=== PATIENT | male | born 1990 | race Caucasian/White ===

== ENCOUNTER 2024-12-21 13:45 | Emergency (ER) | payer SELFPAY ==
[2024-12-21 13:58] VITALS: BP 131/83; PULSE 89; RESP 18; TEMP 36.7; O2SAT 95; BMI 51.5
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
[2024-12-21 14:46] VITALS: BP 152/92; PULSE 99; O2SAT 94
== END 2024-12-21 14:50 | disposition home or self-care (01) ==
PROVIDERS: Emergency Provider Physician Assistant
DX: S63.502A Unspecified sprain of left wrist, initial encounter (principal); V89.2XXA Person injured in unspecified motor-vehicle accident, traffic, initial encounter; M79.642 Pain in left hand
CPT/HCPCS: 73110; 73130; 99283

== ENCOUNTER 2024-12-26 10:16 | Emergency (ER) | payer SELFPAY ==
[2024-12-26 10:43] VITALS: BP 156/86; PULSE 105; TEMP 36.9; O2SAT 95; BMI 51.5
[2024-12-26 12:32] LABS: Covid PCR NEGATIVE (Negative); Influenza A POSITIVE (Negative); Influenza B NEGATIVE (Negative); Respiratory Syncytial Virus Ce NEGATIVE (Negative)
--- NOTE | 2024-12-26 13:34 | W.ED.URI ---
HPI - URI/Sore Throat General: Chief Complaint: Upper Respiratory Infection Stated Complaint: coughing,migraine Time Seen by Provider: 12/26/24 13:21 Source: patient Mode of arrival: ambulatory Limitations: no limitations History of Present Illness: 34-year-old male states for last 3 days been having cough congestion along with sore throat and migraine. He states he has had chills body aches subjective fevers. Denies any vomiting or diarrhea denies any worse improving factors. Associated symptoms: Reports chills and headache(s); Deny abdominal pain, chest pain, diarrhea, fever(s), nausea or vomiting Related Data Allergies Allergy/AdvReac Type Severity Reaction Status Date / Time No Known Allergies Allergy Verified 12/26/24 10:46 Review of Systems Const: Reports: chills and body aches; Denies: fever(s) or change in appetite ENMT: Denies: throat pain or dental pain Card: Denies: chest pain Resp: Reports: non-productive cough GI: Denies: abdominal pain, nausea, vomiting or diarrhea Musc: Denies: neck pain or back pain Skin/Breast: Denies: rash Neuro: Reports: headache(s) Physical Exam Const: COMMON NORMALS: patient oriented x3 and healthy appearing HENMT: COMMON NORMALS: normocephalic and atraumatic HEAD & SCALP: normocephalic and atraumatic THROAT: posterior oropharynx normal Neck/C-Spine: COMMON NORMALS: full ROM and supple Chest: COMMONS NORMALS: normal inspection of the chest Resp: COMMON NORMALS: normal respiratory effort, No retractions, No use of accessory muscles and clear to auscultation bilaterally AUSCULTATION: clear to auscultation bilaterally Cardio: COMMON NORMALS: regular rate, regular rhythm and No murmurs present (Cardio) RATE: regular rate RHYTHM: regular rhythm Extremity: COMMON NORMALS: normal to inspection and full ROM Neuro: COMMON NORMALS: patient oriented x3, moves all extremities and no focal motor deficits Psych: COMMON NORMALS: mental status grossly normal, Normal thought process present and cooperative THOUGHT PROCESS: Normal thought process present Skin: COMMON NORMALS: no rashes or lesions noted and no wounds GENERAL SKIN EXAM: no rashes or lesions noted Course Vital Signs: Vital signs: Vital Signs Temperature 98.5 F 12/26/24 10:43 Pulse Rate 105 H 12/26/24 10:43 Blood Pressure 156/86 12/26/24 10:43 Pulse Oximetry 95 12/26/24 10:43 Oxygen Delivery Me thod Room Air 12/26/24 10:43 MDM - URI/Sore Throat Medical Decision Making Patient presents here with influenza he is well-appearing here he stable for discharge follow-up PCP return if worsening. Medical Records I reviewed the patient's medical records. Lab Data I reviewed the patient's lab results. Laboratory Results Coronavirus (PCR) Negative (Negative) 12/26/24 10:45 Influenza A (PCR) Positive (Negative) 12/26/24 10:45 Influenza Type B (PCR) Negative (Negative) 12/26/24 10:45 RSV (PCR) Negative (Negative) 12/26/24 10:45 No radiology studies performed this visit Discharge Plan Discharge Patient Disposition: Home Clinical Impression: Influenza Condition: Stable Discharge Orders: Discharge ED (Routine); Ordered 12/26/24 Ordered By: Eben Negron Discharge Diet: Advance as tolerated Discharge Activity: Resume usual activity Patient Instructions: Influenza (ED) Stand Alone Forms: Work/School Release Print Language: Kazakh Coding Level of Care Code ED Software Sales Executive for Tiera Mendoza
[2024-12-26 13:59] VITALS: BP 139/85; PULSE 97; O2SAT 95
== END 2024-12-26 13:45 | disposition home or self-care (01) ==
PROVIDERS: Emergency Provider Emergency Medicine
DX: J10.1 Influenza due to other identified influenza virus with other respiratory manifestations (principal); Z11.52 Encounter for screening for COVID-19
CPT/HCPCS: 87637; 99283

== ENCOUNTER 2025-01-09 09:11 | Emergency (ER) | payer SELFPAY ==
--- NOTE | 2025-01-09 09:18 | XR_ITS ---
WS: [id number] Exam: XR chest 1V portable [id number] Date/Time of Exam: 01/09/2025 9:19 AM Reason For Exam: dyspnea/cough No priors. Lungs are clear and fully expanded. Normal cardiomediastinal silhouette and regional bony elements. XR/XR chest 1V portable [id number] IMPRESSION: 1. Negative chest.
[2025-01-09 09:29] VITALS: BP 176/91; PULSE 93; RESP 16; TEMP 36.8; O2SAT 94; BMI 57.9
--- NOTE | 2025-01-09 09:50 | PC.PHAR ---
Pt did state he had a bad reaction to an unknown steroid but does not remember which one. At time of reaction, pt stopped taking and was prescribed a different steroid, which turned out fine. Pt unsure of either.
[2025-01-09 10:25] LABS: Influenza A NEGATIVE (Negative); Influenza B NEGATIVE (Negative); Respiratory Syncytial Virus Ce NEGATIVE (Negative); SARS-CoV-2 PCR NEGATIVE (Negative)
--- NOTE | 2025-01-09 10:41 | ED_ITS ---
HPI - URI/Sore Throat General: Chief Complaint: Upper Respiratory Infection Stated Complaint: coughing Time Seen by Provider: 01/09/25 09:13 History of Present Illness: 34-year-old male who [facility] complaint of sinus congestion and cough for the last several days has had some increase nasal discharge in the morning sometimes is slightly blood-tinged will clear up his somewhat through the days also had some popping and full sensation in his ears no fever sweats or chills. No vomiting or diarrhea. Associated symptoms: Deny abdominal pain, chills, chest pain or fever(s) Related Data Previous Rx's ?Medication ?Instructions ?Recorded pseudoephedrine HCl 120 mg 120 mg PO BID PRN nasal con gestion 01/09/25 tablet,extended release #20 tabs Allergies Allergy/AdvReac Type Severity Reaction Status Date / Time No Known Allergies Allergy Verified 12/26/24 10:46 Review of Systems Const: Denies: fever(s) or chills Card: Denies: chest pain Resp: Denies: dyspnea GI: Denies: abdominal pain : Denies: dysuria, urinary frequency or urinary urgency Musc: Denies: neck pain or back pain Skin/Breast: Denies: rash Physical Exam Const: COMMON NORMALS: no acute distress GENERAL APPEARANCE: cooperative and comfortable ORIENTATION/CONSCIOUSNESS: Yes awake, Yes oriented to person, Yes oriented to place and Yes oriented to time HENMT: COMMON NORMALS: normocephalic, atraumatic, hearing grossly normal bilaterally, external ears normal, EAC's normal, TM's normal bilaterally and Normal nasal mucous membranes and turbinates present HEAD & SCALP: normocephalic and atraumatic NOSE: Normal nasal mucous membranes and turbinates present EXTERNAL EAR: Yes external ears normal EXTERNAL AUDITORY CANAL: EAC's normal TYMPANIC MEMBRANE: TM's normal bilaterally Eye: COMMON NORMALS: Equal, round and reactive pupils present, EOMs intact bilaterally, conjunctivae normal and no scleral icterus CONJUNCTIVA: Yes conjunctivae normal PUPIL: Yes Equal, round and reactive pupils present Neck/C-Spine: COMMON NORMALS: full ROM, no lymphadenopathy, supple and no JVD Lymph: LYMPHATIC: no lymphadenopathy noted and no lymphedema noted Resp: COMMON NORMALS: normal respiratory effort, No retractions, No use of accessory muscles and clear to auscultation bilaterally AUSCULTATION: clear to auscultation bilaterally Cardio: COMMON NORMALS: no JVD, regular rate, regular rhythm and No murmurs present (Cardio) RATE: regular rate RHYTHM: regular rhythm GI: COMMON NORMALS: Soft to palpation and No hepatosplenomegaly present AUSCULTATION: Yes normoactive bowel sounds PALPATION: Yes Soft to palpation, No Tenderness to palpation present (GI), No Guarding due to palpation present (GI) and Yes No hepatosplenomegaly present Extremity: COMMON NORMALS: normal to inspection, capillary refill normal, no clubbing, cyanosis or edema, no calf tenderness and no pedal edema Neuro: SENSORIUM/ORIENTATION: Yes oriented to person, Yes oriented to place and Yes oriented to time Skin: COMMON NORMALS: no rashes or lesions noted GENERAL SKIN EXAM: no rashes or lesions noted Course Vital Signs: Vital signs: Vital Signs Temperature 98.3 F 01/09/25 09:29 Pulse Rate 91 01/09/25 10:51 Respiratory Rate 16 01/09/25 09:29 Blood Pressure 167/91 01/09/25 10:51 Pulse Oximetry 94 01/09/25 10:51 Oxygen Delivery Me thod Room Air 01/09/25 09:29 MDM - URI/Sore Throat Medical Decision Making No significant findings on exam TMs are clear bilaterally chest is clear chest x-ray normal flu COVID RSV swab also negative. Supportive cares follow-up as needed Medical Records I reviewed the patient's medical records. Lab Data I reviewed the patient's lab results. Radiology Impressions Chest X-Ray 01/09/25 09:18 IMPRESSION: 1. Negative chest. Laboratory Results Influenza A (PCR) Negative (Negative) 01/09/25 09:29 Influenza Type B (PCR) Negative (Negative) 01/09/25 09:29 RSV (PCR) Negative (Negative) 01/09/25 09:29 SARS-CoV-2 (PCR) Negative (Negative) 01/09/25 09:29 All radiology interpretation(s) finalized by discharge Discharge Plan Discharge Patient Disposition: Home Clinical Impression: Viral infection Condition: Stable Prescriptions: New pseudoephedrine HCl 120 mg tablet extended release 120 mg PO BID PRN (Reason: nasal congestion) Qty: 20 0RF Discharge Orders: Discharge ED (Routine); Ordered 01/09/25 Ordered By: Jose Bowers Discharge Diet: Usual diet Discharge Activity: Increase activity as tolerated Patient Instructions: Opioid Safety, Pain Management Activity Restrictions/Additional Instructions: Thank you for choosing [facility] for your healthcare needs today. It is very important that you follow up as instructed or that you return to the E mergency Department should you have concerns or if your condition changes or worsens in any way. You are seen emergency room for sinus congestion. Based on your exam and history as well as her chest x-ray and swabs for viruses this most likely is a viral infection. Supportive care she can use pseudoephedrine 1 twice a day as needed. If symptoms not improving follow-up with primary care doctor. Print Language: Wolof Coding Level of Care Code ED Senior Oracle Soa Developer for Tiera Mendoza
[2025-01-09 10:51] VITALS: BP 167/91; PULSE 91; O2SAT 94
== END 2025-01-09 10:50 | disposition home or self-care (01) ==
PROVIDERS: Emergency Provider Family Medicine
DX: B34.9 Viral infection, unspecified (principal); Z11.52 Encounter for screening for COVID-19
CPT/HCPCS: 71045; 87637; 99284